=== PATIENT | male | born 1990 | race Caucasian/White ===

== ENCOUNTER 2023-02-01 01:12 | Emergency (ER) | payer SELFPAY ==
[~2023-02-01] VITALS: Ht 188 cm; Wt 87.0 kg
[2023-02-01 01:56] VITALS: TEMP 99.3; O2SAT 100
[2023-02-01 05:56] VITALS: BP 119/78; PULSE 98; RESP 20
[2023-02-01] MEDS ORDERED: KETOROLAC 30MG/ML VIAL IV STA (05:56)
[2023-02-01] MEDS ORDERED: SODIUM CHLORIDE 0.9% 1,000 ML IV ONE (06:00)
== END 2023-02-01 08:43 | disposition home or self-care (01) ==
LOC: ER 01:25
DX: J06.9 Acute upper respiratory infection, unspecified (principal)
CPT/HCPCS: 99283; 96374; 96361; J1885; J7030